=== PATIENT | female | born 1985 | race Two or more races ===

== ENCOUNTER 2024-02-22 08:21 | Inpatient (IN) | payer OTHER ==
[~2024-02-22] VITALS: Ht 157.5 cm; Wt 87.0 kg
[2024-02-22] MEDS ORDERED: TRAZ-252 PO (08:36)
[2024-02-22] MEDS ORDERED: FLUO-418 PO (08:36)
[2024-02-22] MEDS ORDERED: AMLO-257 PO (08:36)
[2024-02-22] MEDS ORDERED: LISI-893 PO (08:36)
[2024-02-22] MEDS ORDERED: DAPA10TA PO (08:36)
[2024-02-22] MEDS ORDERED: METF-1211 PO (08:36)
[2024-02-22 08:56] LABS: GLUCOMETER DEV NAME(LOC) ER.7; GLUCOSE,POINT OF CARE 261 MG/DL (70-110)
[2024-02-22] MEDS: DIPHENOXYLATE/ATROP 2.5-0.025 MG TABLET PO ONE (09:20)
[2024-02-22] MEDS: ONDANSETRON HCL 4 MG/2 ML VIAL IVP ONE (09:21)
[2024-02-22] MEDS: KETOROLAC TROMETHAMINE 30 MG/ML VIAL IVP ONE (09:21)
[2024-02-22] MEDS: ACETAMINOPHEN 500 MG TABLET PO ONE (09:21)
[2024-02-22] MEDS: SODIUM CHLORIDE 0.9% 2,000 ML IV ONE (09:22)
[2024-02-22 09:53] LABS: APPEARANCE,URINE HAZY (CLEAR); BILIRUBIN,URINE NEGATIVE (NEGATIVE); COLOR,URINE YELLOW (YELLOW); GLUCOSE, URINE (UA) TRACE mg/dL (NEGATIVE); KETONES,URINE NEGATIVE (NEGATIVE); LEUKOCYTE ESTERASE ,URINE NEGATIVE (NEGATIVE); NITRATE,URINE NEGATIVE (NEGATIVE); OCCULT BLOOD,URINE TRACE (NEGATIVE); PROTEIN,URINE 30-70 mg/dL (NEGATIVE); SPECIFIC GRAVITIY, URINE 1.024 (1.003-1.030); UROBILINOGEN,URINE <=1.0 mg/dL (<=1.0)
[2024-02-22 09:53] LABS: BASOPHILS % (AUTO) 0.1 % (0.0-2.0); EOSINOPHILS % (AUTO) 0 % (1.0-6.0); HEMOGLOBIN 13.6 g/dL (12.0-16.0); LYMPHOCYTES # (AUTO) 0.3 K/uL (1.0-4.8); LYMPHOCYTES % (AUTO) 6.6 % (22.0-44.0); MEAN CORPUSCULAR HEMOGLOBIN 28.5 pg (26.0-34.0); MEAN CORPUSCULAR HGB CONC 33.3 G/dL (31.0-37.0); MEAN CORPUSCULAR VOLUME 86 fL (80-100); MONOCYTES # (AUTO) 0.1 K/uL (0.1-1.0); MONOCYTES % (AUTO) 3.8 % (2.0-9.0); NEUTROPHILS # (AUTO) 3.5 K/uL (1.8-7.7); PLATELET COUNT (AUTO) 424 K/uL (150-450); RED BLOOD CELL COUNT(AUTO) 4.78 MIL/uL (4.00-5.20); RED CELL DISTRIBUTION WIDTH 16.8 % (11.5-14.5); WHITE BLOOD COUNT (AUTO) 3.9 K/uL (4.5-11.0)
[2024-02-22 09:59] LABS: RBC,URINE 0-2 /HPF (0-2); WBC,URINE None Seen /HPF (0-5)
[2024-02-22 09:59] LABS: NEUTROPHILS % (AUTO) 89.5 % (40.0-70.0)
[2024-02-22 10:00] LABS: BACTERIA,URINE Many /HPF (None Seen); SQUAMOUS EPITHELIAL CELL,UR Many /LPF (None Seen)
[2024-02-22 10:08] LABS: ANION GAP 19 mmol/L (8-16); CALCIUM, TOTAL 9.1 mg/dL (8.8-10.5); CARBON DIOXIDE 16 mmol/L (22-29); CHLORIDE 93 mmol/L (98-107); CREATININE 1.78 mg/dL (0.60-1.30); GLOMERULAR FILTR. RATE CALC 32 mL/min (>60); GLUCOSE,RANDOM 263 mg/dL (70-110); POTASSIUM 3.8 mmol/L (3.5-5.1); SODIUM SERUM 128 mmol/L (136-145); UREA NITROGEN, BLOOD 35 mg/dL (7-18)
[2024-02-22 10:15] LABS: ALANINE AMINOTRANSFERASE 33 U/L (12-78); ALBUMIN 3.6 g/dL (3.4-5.0); ALKALINE PHOSPHATASE 81 U/L (46-116); ASPARTATE AMINOTRANSFERASE 25 U/L (15-37); BILIRUBIN,TOTAL 0.7 mg/dL (0.1-1.0); LIPASE 24 U/L (16-77); TOTAL PROTEIN, SERUM 8.3 g/dL (6.4-8.2)
[2024-02-22 10:45] LABS: HCG,QUANTITATIVE < 1 mIU/mL (0-6)
[2024-02-22] MEDS ORDERED: MAGNESIUM HYDROXIDE SUSPENSION 30 ML UDCUP PO PRN (13:45)
[2024-02-22] MEDS ORDERED: BISACODYL 10 MG RECTAL RECTAL SUPPOSITORY PR PRN (13:45)
[2024-02-22] MEDS ORDERED: DEXTROSE 50%-WATER 25 GM/50 ML SYRINGE IVP PRN (14:00)
[2024-02-22] MEDS: MetroNIDAZOLE 500 MG/NACL 100 ML IV SCH (15:07)
[2024-02-22] MEDS: SODIUM CHLORIDE 0.9% 1,000 ML IV SCH (15:07)
[2024-02-22] MEDS: MORPHINE SULFATE 2 MG/ML SYRINGE IVP PRN (15:16)
[2024-02-22] MEDS: HEPARIN SODIUM,PORCINE 5,000 UNITS/ML VIAL SQ SCH (15:48)
[2024-02-22] MEDS: ACETAMINOPHEN 325 MG TABLET PO PRN (16:19)
[2024-02-22 16:37] VITALS: BP 127/69; PULSE 108; RESP 18; TEMP 100.7; O2SAT 99
[2024-02-22] MEDS: HYDROCODONE/ACETAMINOPHEN 5-325 MG TABLET PO PRN (17:40)
[2024-02-22] MEDS: DOCUSATE SODIUM 100 MG CAPSULE PO SCH (19:46)
[2024-02-22] MEDS: INSULIN LISPRO 100 UNITS/ML SQ PRN (19:53)
[2024-02-22 20:20] VITALS: BP 123/57; PULSE 95; RESP 18; TEMP 98.5; O2SAT 99
[2024-02-22 21:15] LABS: GLUCOMETER DEV NAME(LOC) 6N.2B; GLUCOSE,POINT OF CARE 212 MG/DL (70-110)
[2024-02-22 21:15] LABS: GLUCOMETER DEV NAME(LOC) 6N.2B; GLUCOSE,POINT OF CARE 212 MG/DL (70-110)
[2024-02-23 04:54] VITALS: BP 133/79; PULSE 113; RESP 18; TEMP 99.9; O2SAT 99
[2024-02-23] MEDS: ONDANSETRON HCL 4 MG/2 ML VIAL IVP PRN (04:59)
[2024-02-23 06:31] LABS: GLUCOMETER DEV NAME(LOC) 6N.2B; GLUCOSE,POINT OF CARE 249 MG/DL (70-110)
[2024-02-23 07:37] LABS: BASOPHILS % (AUTO) 0.2 % (0.0-2.0); EOSINOPHILS % (AUTO) 0 % (1.0-6.0); HEMATOCRIT 37.2 % (36-46); HEMOGLOBIN 12.3 g/dL (12.0-16.0); LYMPHOCYTES # (AUTO) 0.2 K/uL (1.0-4.8); LYMPHOCYTES % (AUTO) 7.2 % (22.0-44.0); MEAN CORPUSCULAR HEMOGLOBIN 28.3 pg (26.0-34.0); MEAN CORPUSCULAR HGB CONC 33.2 G/dL (31.0-37.0); MEAN CORPUSCULAR VOLUME 85 fL (80-100); MONOCYTES # (AUTO) 0.2 K/uL (0.1-1.0); MONOCYTES % (AUTO) 4.5 % (2.0-9.0); PLATELET COUNT (AUTO) 324 K/uL (150-450); RED BLOOD CELL COUNT(AUTO) 4.36 MIL/uL (4.00-5.20); RED CELL DISTRIBUTION WIDTH 16.5 % (11.5-14.5); WHITE BLOOD COUNT (AUTO) 3.4 K/uL (4.5-11.0)
[2024-02-23 07:38] LABS: NEUTROPHILS % (AUTO) 88.1 % (40.0-70.0)
[2024-02-23 07:50] LABS: CALCIUM, TOTAL 8.6 mg/dL (8.8-10.5); CREATININE 1.4 mg/dL (0.60-1.30); POTASSIUM 3.2 mmol/L (3.5-5.1)
[2024-02-23 08:00] VITALS: BP 154/73; PULSE 100; RESP 18; TEMP 97.7; O2SAT 97
[2024-02-23] MEDS: LISINOPRIL 10 MG TABLET PO SCH (09:22)
[2024-02-23] MEDS: PANTOPRAZOLE SODIUM 40 MG DR TABLET PO SCH (09:22)
[2024-02-23] MEDS: AmLODIPine BESYLATE 5 MG TABLET PO SCH (09:22)
[2024-02-23 12:03] VITALS: BP 93/52; PULSE 102; RESP 18; TEMP 97; O2SAT 99
[2024-02-23] MEDS ORDERED: SODIUM CHLORIDE 0.9% 250 ML IV ONE (12:20)
[2024-02-23] MEDS: SODIUM CHLORIDE 0.9% 250 ML IV ONE (12:26)
[2024-02-23] MEDS ORDERED: SODIUM CHLORIDE 0.9% 500 ML IV ONE (14:24)
[2024-02-23] MEDS: SODIUM CHLORIDE 0.9% 500 ML IV ONE (14:28)
[2024-02-23 16:19] VITALS: BP 97/46; PULSE 88; RESP 18; TEMP 96; O2SAT 97
[2024-02-23 17:21] LABS: GLUCOMETER DEV NAME(LOC) 4E.2; GLUCOSE,POINT OF CARE 265 MG/DL (70-110)
[2024-02-23 20:00] VITALS: BP 93/53; PULSE 80; RESP 18; TEMP 98.1; O2SAT 97
[2024-02-23 21:42] VITALS: BP 90/48; PULSE 79; RESP 19; TEMP 97.9; O2SAT 98
[2024-02-23 21:56] LABS: GLUCOMETER DEV NAME(LOC) 5N.2C; GLUCOSE,POINT OF CARE 200 MG/DL (70-110)
[2024-02-23 23:09] LABS: C.DIFF GDH ANTIGEN, Stool Negative (Negative); C.DIFF TOXINS A&B, Stool Negative (Negative)
[2024-02-23] MEDS: POTASSIUM CHL 10 MEQ/WATER 50 ML IV SCH (23:11)
[2024-02-24 00:54] VITALS: BP 89/48; PULSE 77; RESP 19; TEMP 98.1; O2SAT 97
[2024-02-24 01:40] VITALS: BP 88/51; PULSE 78; RESP 20; TEMP 98; O2SAT 96
[2024-02-24 04:00] VITALS: BP 90/55; PULSE 71; RESP 17; TEMP 98.2; O2SAT 99
[2024-02-24 06:43] LABS: BASOPHILS % (AUTO) 0.4 % (0.0-2.0); EOSINOPHILS % (AUTO) 0.1 % (1.0-6.0); HEMATOCRIT 34.7 % (36-46); HEMOGLOBIN 11.7 g/dL (12.0-16.0); LYMPHOCYTES # (AUTO) 0.5 K/uL (1.0-4.8); LYMPHOCYTES % (AUTO) 16.6 % (22.0-44.0); MEAN CORPUSCULAR HEMOGLOBIN 28.8 pg (26.0-34.0); MEAN CORPUSCULAR HGB CONC 33.6 G/dL (31.0-37.0); MEAN CORPUSCULAR VOLUME 86 fL (80-100); MONOCYTES # (AUTO) 0.5 K/uL (0.1-1.0); MONOCYTES % (AUTO) 16.5 % (2.0-9.0); NEUTROPHILS # (AUTO) 2.1 K/uL (1.8-7.7); NEUTROPHILS % (AUTO) 66.4 % (40.0-70.0); PLATELET COUNT (AUTO) 338 K/uL (150-450); RED BLOOD CELL COUNT(AUTO) 4.05 MIL/uL (4.00-5.20); RED CELL DISTRIBUTION WIDTH 16.8 % (11.5-14.5); WHITE BLOOD COUNT (AUTO) 3.2 K/uL (4.5-11.0)
[2024-02-24 06:51] LABS: CALCIUM, TOTAL 8.6 mg/dL (8.8-10.5); CREATININE 4.01 mg/dL (0.60-1.30); POTASSIUM 3.7 mmol/L (3.5-5.1)
[2024-02-24 08:00] LABS: GLUCOMETER DEV NAME(LOC) 5S.1C; GLUCOSE,POINT OF CARE 209 MG/DL (70-110)
[2024-02-24 08:00] LABS: GLUCOMETER DEV NAME(LOC) 5S.1C; GLUCOSE,POINT OF CARE 203 MG/DL (70-110)
[2024-02-24 09:04] VITALS: BP 101/59; PULSE 70; RESP 16; TEMP 97.7; O2SAT 99
[2024-02-24 14:04] VITALS: BP 101/60; PULSE 69; RESP 16; TEMP 98; O2SAT 98
[2024-02-24] MEDS: SODIUM BICARBONATE 75 MEQ in SODIUM CHLORIDE 0.45% 1,000 ML IV SCH (14:32)
[2024-02-24] MEDS: POTASSIUM CHL 10 MEQ/WATER 50 ML IV SCH (14:32)
[2024-02-24 17:45] LABS: GLUCOMETER DEV NAME(LOC) 5N.2C; GLUCOSE,POINT OF CARE 228 MG/DL (70-110)
[2024-02-24 21:38] VITALS: BP 107/55; PULSE 77; RESP 17; TEMP 97.5; O2SAT 99
[2024-02-25 00:44] VITALS: BP 94/46; PULSE 98; RESP 19; TEMP 97.7; O2SAT 97
[2024-02-25 04:39] VITALS: BP 123/59; PULSE 81; RESP 18; TEMP 97.5; O2SAT 99
[2024-02-25 07:05] LABS: BASOPHILS % (AUTO) 0.1 % (0.0-2.0); EOSINOPHILS % (AUTO) 0.1 % (1.0-6.0); HEMATOCRIT 34.5 % (36-46); HEMOGLOBIN 11.4 g/dL (12.0-16.0); LYMPHOCYTES # (AUTO) 0.5 K/uL (1.0-4.8); MEAN CORPUSCULAR HEMOGLOBIN 28.3 pg (26.0-34.0); MEAN CORPUSCULAR HGB CONC 33.1 G/dL (31.0-37.0); MEAN CORPUSCULAR VOLUME 86 fL (80-100); MONOCYTES # (AUTO) 0.8 K/uL (0.1-1.0); NEUTROPHILS # (AUTO) 3.3 K/uL (1.8-7.7); NEUTROPHILS % (AUTO) 70.8 % (40.0-70.0); PLATELET COUNT (AUTO) 391 K/uL (150-450); RED BLOOD CELL COUNT(AUTO) 4.03 MIL/uL (4.00-5.20); RED CELL DISTRIBUTION WIDTH 16.6 % (11.5-14.5); WHITE BLOOD COUNT (AUTO) 4.7 K/uL (4.5-11.0)
[2024-02-25 07:20] LABS: CALCIUM, TOTAL 8.9 mg/dL (8.8-10.5); CREATININE 5.9 mg/dL (0.60-1.30); MAGNESIUM 3.1 mg/dL (1.80-2.40); PHOSPHORUS 5.9 mg/dL (2.5-4.9); POTASSIUM 3.9 mmol/L (3.5-5.1)
[2024-02-25 08:00] VITALS: BP 112/62; PULSE 80; RESP 16; TEMP 98; O2SAT 98
[2024-02-25 10:26] LABS: GLUCOMETER DEV NAME(LOC) 5S.1C; GLUCOSE,POINT OF CARE 223 MG/DL (70-110)
[2024-02-25 13:00] VITALS: BP 124/65; PULSE 68; RESP 18; TEMP 97.9; O2SAT 99
[2024-02-25 14:48] LABS: ABG A-A DIFF O2 15.2 mmHg (10-20.0); ABG CARBOXYHEMOGLOBIN 0.3 % (0.5-1.5); ABG HCO3 15.9 mmol/L (21.0-28.0); ABG METHEMOGLOBIN 0.8 % (0.0-1.5); ABG OXYGEN CONTENT 18.3 mL/dL (15.0-23.0); ABG OXYGEN SATURATION 98.5 % (94.0-98.0); ABG OXYHEMOGLOBIN 97.4 % (94.0-98.0); ABG PCO2 23 mmHg (32.0-45.0); ABG PH 7.356 (7.350-7.450); ABG TOTAL HEMOGLOBIN 13.3 G/dL (12.0-16.0); ALLEN TEST, BLOOD GAS Positive; O2 DEVICE,BLOOD GAS ROOM AIR (ROOM AIR); PO2, ARTERIAL BG 107.2 mmHg (83.0-108.0); SITE, BLOOD GAS RT RADIAL; SOURCE, BLOOD GAS ARTERIAL; TEMPERATURE, FAHRENHEIT, BG 98.6 FAHREN (96.0-98.6)
[2024-02-25] MEDS: AZITHROMYCIN 500 MG/NS 250 ML IV SCH (16:26)
[2024-02-25 17:04] VITALS: BP 111/60; PULSE 77; RESP 16; TEMP 98; O2SAT 99
[2024-02-25 20:00] VITALS: BP 115/58; PULSE 83; RESP 18; TEMP 98.1; O2SAT 100
[2024-02-25] MEDS: ZOLPIDEM TARTRATE 5 MG TABLET PO PRN (22:34)
[2024-02-26 00:21] LABS: GLUCOMETER DEV NAME(LOC) 5S.1C; GLUCOSE,POINT OF CARE 330 MG/DL (70-110)
[2024-02-26 04:00] VITALS: BP 114/62; PULSE 85; RESP 18; TEMP 97.7; O2SAT 98
[2024-02-26] MEDS: METOCLOPRAMIDE HCL 5 MG/ML 2 ML VIAL IVP ONE (04:55)
[2024-02-26 06:06] LABS: GLUCOMETER DEV NAME(LOC) 5N.2C; GLUCOSE,POINT OF CARE 203 MG/DL (70-110)
[2024-02-26 06:06] LABS: GLUCOMETER DEV NAME(LOC) 5N.1D; GLUCOSE,POINT OF CARE 271 MG/DL (70-110)
[2024-02-26 07:04] LABS: CALCIUM, TOTAL 8.6 mg/dL (8.8-10.5); CREATININE 7.13 mg/dL (0.60-1.30); POTASSIUM 3.1 mmol/L (3.5-5.1)
[2024-02-26 08:07] VITALS: BP 102/48; PULSE 80; RESP 16; TEMP 98.1; O2SAT 97
[2024-02-26 11:18] VITALS: BP 101/48; PULSE 84; RESP 16; TEMP 98.2; O2SAT 97
[2024-02-26 11:56] LABS: GLUCOMETER DEV NAME(LOC) 5S.2D; GLUCOSE,POINT OF CARE 205 MG/DL (70-110)
[2024-02-26 11:56] LABS: GLUCOMETER DEV NAME(LOC) 5S.2D; GLUCOSE,POINT OF CARE 223 MG/DL (70-110)
[2024-02-26] MEDS: POTASSIUM CHL 10 MEQ/WATER 50 ML IV SCH (12:30)
[2024-02-26] MEDS: SODIUM BICARBONATE 150 MEQ in DEXTROSE 5%-WATER 1,000 ML IV SCH (13:15)
[2024-02-26 15:30] VITALS: BP 108/60; PULSE 79; RESP 16; TEMP 98; O2SAT 98
[2024-02-26 16:32] LABS: CALCIUM, TOTAL 8.7 mg/dL (8.8-10.5); CREATININE 7.29 mg/dL (0.60-1.30); POTASSIUM 3.3 mmol/L (3.5-5.1)
[2024-02-26] MEDS: SODIUM CHLORIDE 3% 500 ML IV SCH (16:41)
[2024-02-26 17:28] LABS: BASOPHILS % (AUTO) 0.1 % (0.0-2.0); EOSINOPHILS % (AUTO) 0.2 % (1.0-6.0); HEMATOCRIT 35.1 % (36-46); HEMOGLOBIN 11.7 g/dL (12.0-16.0); LYMPHOCYTES # (AUTO) 0.7 K/uL (1.0-4.8); LYMPHOCYTES % (AUTO) 14.4 % (22.0-44.0); MEAN CORPUSCULAR HEMOGLOBIN 27.5 pg (26.0-34.0); MEAN CORPUSCULAR HGB CONC 33.4 G/dL (31.0-37.0); MEAN CORPUSCULAR VOLUME 82 fL (80-100); MONOCYTES # (AUTO) 0.8 K/uL (0.1-1.0); MONOCYTES % (AUTO) 15.2 % (2.0-9.0); NEUTROPHILS # (AUTO) 3.6 K/uL (1.8-7.7); NEUTROPHILS % (AUTO) 70.1 % (40.0-70.0); PLATELET COUNT (AUTO) 474 K/uL (150-450); RED BLOOD CELL COUNT(AUTO) 4.26 MIL/uL (4.00-5.20); WHITE BLOOD COUNT (AUTO) 5.1 K/uL (4.5-11.0)
[2024-02-26 20:06] LABS: GLUCOMETER DEV NAME(LOC) 5N.1D; GLUCOSE,POINT OF CARE 317 MG/DL (70-110)
[2024-02-26 20:10] LABS: GLUCOMETER DEV NAME(LOC) 5S.1C; GLUCOSE,POINT OF CARE 341 MG/DL (70-110)
[2024-02-26] MEDS: AMPICILLIN SODIUM 2 GM/NS 100 ML IV SCH (20:40)
[2024-02-26 20:52] LABS: CALCIUM, TOTAL 8.4 mg/dL (8.8-10.5); CREATININE 7.49 mg/dL (0.60-1.30); POTASSIUM 3.4 mmol/L (3.5-5.1)
[2024-02-26 21:04] VITALS: BP 119/60; PULSE 80; RESP 18; TEMP 97.8; O2SAT 98
[2024-02-26 22:00] VITALS: PULSE 84
[2024-02-26] MEDS: ONDANSETRON HCL 4 MG/2 ML VIAL IVP PRN (22:39)
[2024-02-27] VITALS: BP 111/62; PULSE 71; RESP 12; TEMP 98.3; O2SAT 96
[2024-02-27 00:41] LABS: GLUCOMETER DEV NAME(LOC) ICU.S6; GLUCOSE,POINT OF CARE 233 MG/DL (70-110)
[2024-02-27 04:00] VITALS: BP 103/61; PULSE 73; RESP 12; TEMP 98.2; O2SAT 97
[2024-02-27 06:24] LABS: BASOPHILS % (AUTO) 0.3 % (0.0-2.0); EOSINOPHILS % (AUTO) 0.3 % (1.0-6.0); HEMATOCRIT 36.1 % (36-46); HEMOGLOBIN 12.2 g/dL (12.0-16.0); LYMPHOCYTES # (AUTO) 0.9 K/uL (1.0-4.8); MEAN CORPUSCULAR HEMOGLOBIN 27.8 pg (26.0-34.0); MEAN CORPUSCULAR HGB CONC 33.8 G/dL (31.0-37.0); MEAN CORPUSCULAR VOLUME 82 fL (80-100); MONOCYTES # (AUTO) 0.7 K/uL (0.1-1.0); MONOCYTES % (AUTO) 13.6 % (2.0-9.0); NEUTROPHILS # (AUTO) 3.6 K/uL (1.8-7.7); NEUTROPHILS % (AUTO) 68.8 % (40.0-70.0); PLATELET COUNT (AUTO) 403 K/uL (150-450); RED BLOOD CELL COUNT(AUTO) 4.38 MIL/uL (4.00-5.20); WHITE BLOOD COUNT (AUTO) 5.3 K/uL (4.5-11.0)
[2024-02-27 06:37] LABS: ALBUMIN 2.6 g/dL (3.4-5.0); BILIRUBIN,TOTAL 0.3 mg/dL (0.1-1.0); CALCIUM, TOTAL 8.4 mg/dL (8.8-10.5); CREATININE 6.46 mg/dL (0.60-1.30); MAGNESIUM 2.9 mg/dL (1.80-2.40); PHOSPHORUS 6.8 mg/dL (2.5-4.9)
[2024-02-27 06:46] LABS: POTASSIUM 2.9 mmol/L (3.5-5.1)
[2024-02-27 08:00] VITALS: BP 119/74; PULSE 65; PULSE 69; RESP 14; TEMP 98.5; O2SAT 97
[2024-02-27] MEDS: POTASSIUM CHLORIDE 20 MEQ ER TABLET PO ONE ×2 (08:19→21:18)
[2024-02-27] MEDS ORDERED: SODIUM CHLORIDE 0.9% 250 ML IV ONE (09:11)
[2024-02-27 10:23] LABS: CALCIUM, TOTAL 8.6 mg/dL (8.8-10.5); POTASSIUM 3.2 mmol/L (3.5-5.1)
[2024-02-27 11:09] LABS: MAGNESIUM 2.7 mg/dL (1.80-2.40); PHOSPHORUS 5.6 mg/dL (2.5-4.9)
[2024-02-27] MEDS: WATER IV SCH (11:16)
[2024-02-27] MEDS: SODIUM BICARBONATE IV SCH (11:16)
[2024-02-27] MEDS: DEXTROSE 5% IV SCH (11:16)
[2024-02-27] MEDS: POTASSIUM CHLORIDE IV SCH (11:16)
[2024-02-27 12:00] VITALS: BP 99/35; PULSE 82; RESP 15; TEMP 98.1; O2SAT 98
[2024-02-27 15:40] LABS: POTASSIUM 3.7 mmol/L (3.5-5.1)
[2024-02-27 16:00] VITALS: BP 125/69; PULSE 82; RESP 16; TEMP 98.3; O2SAT 98
[2024-02-27 17:05] LABS: GLUCOMETER DEV NAME(LOC) ICUN.5; GLUCOSE,POINT OF CARE 208 MG/DL (70-110)
[2024-02-27 17:05] LABS: GLUCOMETER DEV NAME(LOC) ICUN.5; GLUCOSE,POINT OF CARE 308 MG/DL (70-110)
[2024-02-27 19:21] LABS: GLUCOMETER DEV NAME(LOC) ICU.S6; GLUCOSE,POINT OF CARE 218 MG/DL (70-110)
[2024-02-27 20:00] VITALS: BP 95/52; PULSE 79; RESP 14; TEMP 98.2; O2SAT 99
[2024-02-27 20:00] LABS: CALCIUM, TOTAL 7.9 mg/dL (8.8-10.5); CREATININE 4.99 mg/dL (0.60-1.30); POTASSIUM 3.2 mmol/L (3.5-5.1)
[2024-02-27] MEDS: RINGERS SOLUTION,LACTATED 1,000 ML IV SCH (21:18)
[2024-02-28] VITALS (7 sets, daily range): BP systolic 94–145; BP diastolic 52–93; PULSE 71–92; RESP 12–19; TEMP 97.8–98.5; O2SAT 96–100
[2024-02-28 06:00] LABS: GLUCOMETER DEV NAME(LOC) ICUN.5; GLUCOSE,POINT OF CARE 219 MG/DL (70-110)
[2024-02-28 06:16] LABS: BASOPHILS % (AUTO) 0.3 % (0.0-2.0); EOSINOPHILS % (AUTO) 0.6 % (1.0-6.0); HEMATOCRIT 32.5 % (36-46); HEMOGLOBIN 11.1 g/dL (12.0-16.0); LYMPHOCYTES # (AUTO) 0.8 K/uL (1.0-4.8); LYMPHOCYTES % (AUTO) 26.6 % (22.0-44.0); MEAN CORPUSCULAR HEMOGLOBIN 28.2 pg (26.0-34.0); MEAN CORPUSCULAR HGB CONC 34.2 G/dL (31.0-37.0); MEAN CORPUSCULAR VOLUME 82 fL (80-100); MONOCYTES # (AUTO) 0.5 K/uL (0.1-1.0); MONOCYTES % (AUTO) 16.8 % (2.0-9.0); NEUTROPHILS # (AUTO) 1.8 K/uL (1.8-7.7); NEUTROPHILS % (AUTO) 55.7 % (40.0-70.0); PLATELET COUNT (AUTO) 364 K/uL (150-450); RED BLOOD CELL COUNT(AUTO) 3.95 MIL/uL (4.00-5.20); RED CELL DISTRIBUTION WIDTH 16.9 % (11.5-14.5); WHITE BLOOD COUNT (AUTO) 3.1 K/uL (4.5-11.0)
[2024-02-28 06:33] LABS: CALCIUM, TOTAL 8.8 mg/dL (8.8-10.5); CREATININE 3.68 mg/dL (0.60-1.30); MAGNESIUM 2.7 mg/dL (1.80-2.40); PHOSPHORUS 4.5 mg/dL (2.5-4.9)
[2024-02-28 06:55] LABS: GLUCOMETER DEV NAME(LOC) ICU.S6; GLUCOSE,POINT OF CARE 237 MG/DL (70-110)
[2024-02-28 08:07] LABS: IMMUNOGLOBULIN A 266 mg/dL (87-352); IMMUNOGLOBULIN G 1049 mg/dL (586-1602); IMMUNOGLOBULIN M 73 mg/dL (26-217)
[2024-02-28] MEDS ORDERED: SODIUM CHLORIDE 0.9% 250 ML IV ONE (08:35)
[2024-02-28 12:20] LABS: GLUCOMETER DEV NAME(LOC) ICU.S6; GLUCOSE,POINT OF CARE 306 MG/DL (70-110)
[2024-02-28 15:07] LABS: ATYPICAL P-ANCA AB <1:20 titer (Neg:<1:20); CYTOPLASMIC (C-ANCA) AB, IGG <1:20 titer (Neg:<1:20)
[2024-02-28 21:06] LABS: ADENOVIRUS F 40/41, PCR STOOL Not Detected (Not Detected); ASTROVIRUS, PCR STOOL Not Detected (Not Detected); C.DIFFICILE TOXIN A/B PCR Not Detected (Not Detected); CAMPYLOBACTER PCR,STOOL Not Detected (Not Detected); CRYPTOSPORIDIUM PCR, STOOL Not Detected (Not Detected); CYCLOSPORA CAYETANENSIS, PCR Not Detected (Not Detected); ENTAMOEBA HISTOLYTICA,PCR ST Not Detected (Not Detected); ENTEROAGGREGATIVE E.COLI PCR Not Detected (Not Detected); ENTEROPATHOGENIC E.COLI PCR Not Detected (Not Detected); ENTEROTOXIGENIC E.COLI PCR Not Detected (Not Detected); GIARDIA LAMBLIA, PCR STOOL Not Detected (Not Detected); NOROVIRUS GI/GII, PCR-STOOL Not Detected (Not Detected); PLESIOMONAS SHIGELLOIDES,PCR Not Detected (Not Detected); ROTAVIRUS A, PCR-STOOL Not Detected (Not Detected); SALMONELLA PCR,STOOL Detected (Not Detected); SAPOVIRUS, PCR-STOOL Not Detected (Not Detected); SHIGA-TOXIN E.COLI PCR Not Detected (Not Detected); SHIGELLA/ENTEROINVAS ECOL, PCR Not Detected (Not Detected); VIBRIO CHOLERAE PCR,STOOL Not Detected (Not Detected); VIBRIO PCR,STOOL Not Detected (Not Detected); Y. ENTEROCOLITICA PCR,STOOL Not Detected (Not Detected)
[2024-02-28 21:31] LABS: GLUCOMETER DEV NAME(LOC) 5S.2D; GLUCOSE,POINT OF CARE 185 MG/DL (70-110)
[2024-02-28 21:52] LABS: APPEARANCE,URINE TURBID (CLEAR); BILIRUBIN,URINE NEGATIVE (NEGATIVE); COLOR,URINE YELLOW (YELLOW); GLUCOSE, URINE (UA) >=1000 mg/dL (NEGATIVE); KETONES,URINE NEGATIVE (NEGATIVE); LEUKOCYTE ESTERASE ,URINE NEGATIVE (NEGATIVE); NITRATE,URINE NEGATIVE (NEGATIVE); OCCULT BLOOD,URINE LARGE (NEGATIVE); PROTEIN,URINE 30-70 mg/dL (NEGATIVE); SPECIFIC GRAVITIY, URINE 1.015 (1.003-1.030); UROBILINOGEN,URINE <=1.0 mg/dL (<=1.0)
[2024-02-28 22:05] LABS: BACTERIA,URINE Moderate /HPF (None Seen); SQUAMOUS EPITHELIAL CELL,UR Few /LPF (None Seen); WBC,URINE 0-2 /HPF (0-5); YEAST,URINE Moderate /HPF (None Seen)
[2024-02-28 22:06] LABS: URIC ACID CRYSTALS,URINE Moderate /LPF (None Seen)
[2024-02-28 23:16] LABS: GLUCOMETER DEV NAME(LOC) 5S.1C; GLUCOSE,POINT OF CARE 332 MG/DL (70-110)
[2024-02-29] VITALS (7 sets, daily range): BP systolic 120–137; BP diastolic 65–82; PULSE 67–82; RESP 17–19; TEMP 97.8–98.9; O2SAT 95–98
[2024-02-29 06:37] LABS: BASOPHILS % (AUTO) 0.8 % (0.0-2.0); EOSINOPHILS % (AUTO) 1.8 % (1.0-6.0); HEMATOCRIT 33.5 % (36-46); HEMOGLOBIN 11.1 g/dL (12.0-16.0); LYMPHOCYTES % (AUTO) 38.6 % (22.0-44.0); MEAN CORPUSCULAR HEMOGLOBIN 27.5 pg (26.0-34.0); MEAN CORPUSCULAR HGB CONC 33.2 G/dL (31.0-37.0); MEAN CORPUSCULAR VOLUME 83 fL (80-100); MONOCYTES # (AUTO) 0.4 K/uL (0.1-1.0); MONOCYTES % (AUTO) 15.1 % (2.0-9.0); NEUTROPHILS # (AUTO) 1.1 K/uL (1.8-7.7); NEUTROPHILS % (AUTO) 43.7 % (40.0-70.0); PLATELET COUNT (AUTO) 412 K/uL (150-450); RED BLOOD CELL COUNT(AUTO) 4.04 MIL/uL (4.00-5.20); RED CELL DISTRIBUTION WIDTH 16.2 % (11.5-14.5); WHITE BLOOD COUNT (AUTO) 2.6 K/uL (4.5-11.0)
[2024-02-29 06:55] LABS: CREATININE 1.86 mg/dL (0.60-1.30); MAGNESIUM 2.3 mg/dL (1.80-2.40); PHOSPHORUS 4.5 mg/dL (2.5-4.9); POTASSIUM 4.1 mmol/L (3.5-5.1)
[2024-02-29 10:07] LABS: BRUCELLA ANTIBODY-IGM EIA Negative (Negative)
[2024-02-29] MEDS: GlipiZIDE 5 MG TABLET PO SCH (10:43)
[2024-02-29] MEDS: *CLINICAL-LEVOFLOXACIN IVPB DOSING CLINICAL ONE (12:22)
[2024-02-29] MEDS ORDERED: LEVOFLOXACIN 750 MG/D5% WATER 150 ML IV SCH (12:30)
[2024-02-29] MEDS: LEVOFLOXACIN 750 MG/D5% WATER 150 ML IV SCH (14:17)
[2024-02-29 20:26] LABS: GLUCOMETER DEV NAME(LOC) 5S.2D; GLUCOSE,POINT OF CARE 236 MG/DL (70-110)
[2024-02-29 20:51] LABS: GLUCOMETER DEV NAME(LOC) 6S.1D; GLUCOSE,POINT OF CARE 184 MG/DL (70-110)
[2024-03-01 00:12] LABS: TROPONIN I-HIGH SENSITIVITY Less Than 4 ng/L (<51)
[2024-03-01 03:40] LABS: TROPONIN I-HIGH SENSITIVITY 4 ng/L (<51)
[2024-03-01 04:00] VITALS: BP 123/73; PULSE 76; RESP 19; O2SAT 99
[2024-03-01 07:01] LABS: BASOPHILS % (AUTO) 1.2 % (0.0-2.0); EOSINOPHILS % (AUTO) 3.1 % (1.0-6.0); HEMATOCRIT 30.9 % (36-46); HEMOGLOBIN 10.5 g/dL (12.0-16.0); LYMPHOCYTES # (AUTO) 0.9 K/uL (1.0-4.8); LYMPHOCYTES % (AUTO) 34.9 % (22.0-44.0); MEAN CORPUSCULAR HEMOGLOBIN 28.1 pg (26.0-34.0); MEAN CORPUSCULAR HGB CONC 33.8 G/dL (31.0-37.0); MEAN CORPUSCULAR VOLUME 83 fL (80-100); MONOCYTES # (AUTO) 0.5 K/uL (0.1-1.0); MONOCYTES % (AUTO) 17.5 % (2.0-9.0); NEUTROPHILS # (AUTO) 1.1 K/uL (1.8-7.7); NEUTROPHILS % (AUTO) 43.3 % (40.0-70.0); PLATELET COUNT (AUTO) 317 K/uL (150-450); RED BLOOD CELL COUNT(AUTO) 3.72 MIL/uL (4.00-5.20); WHITE BLOOD COUNT (AUTO) 2.6 K/uL (4.5-11.0)
[2024-03-01 07:15] LABS: ALBUMIN 2.6 g/dL (3.4-5.0); BILIRUBIN,TOTAL 0.4 mg/dL (0.1-1.0); CALCIUM, TOTAL 9.2 mg/dL (8.8-10.5); CREATININE 1.44 mg/dL (0.60-1.30); POTASSIUM 4.1 mmol/L (3.5-5.1); TOTAL PROTEIN, SERUM 6.7 g/dL (6.4-8.2)
[2024-03-01 07:58] VITALS: BP 131/77; PULSE 67; RESP 18; TEMP 98.5; O2SAT 99
[2024-03-01 12:10] LABS: GLUCOMETER DEV NAME(LOC) 6S.1D; GLUCOSE,POINT OF CARE 190 MG/DL (70-110)
[2024-03-01 12:30] LABS: GLUCOMETER DEV NAME(LOC) 6S.2; GLUCOSE,POINT OF CARE 201 MG/DL (70-110)
[2024-03-01] MEDS: LEVOFLOXACIN 750 MG/D5% WATER 150 ML IV SCH (12:36)
[2024-03-01] MEDS: LOPERAMIDE HCL 2 MG CAPSULE PO ONE (14:52)
[2024-03-01 15:35] VITALS: BP 138/74; PULSE 64; RESP 18; TEMP 98.2; O2SAT 100
[2024-03-01] MEDS: LOPERAMIDE HCL 2 MG CAPSULE PO PRN (20:19)
[2024-03-01 20:32] VITALS: BP 142/85; PULSE 80; RESP 18; TEMP 98.9; O2SAT 98
[2024-03-01 23:41] LABS: GLUCOMETER DEV NAME(LOC) 6S.2; GLUCOSE,POINT OF CARE 231 MG/DL (70-110)
[2024-03-02 04:40] VITALS: BP 143/73; PULSE 71; RESP 18; TEMP 98.2; O2SAT 99
[2024-03-02] MEDS: GlipiZIDE 5 MG TABLET PO SCH (06:06)
[2024-03-02 07:46] LABS: GLUCOMETER DEV NAME(LOC) 6S.2; GLUCOSE,POINT OF CARE 209 MG/DL (70-110)
[2024-03-02 07:56] LABS: CALCIUM, TOTAL 8.7 mg/dL (8.8-10.5); CREATININE 1.29 mg/dL (0.60-1.30); MAGNESIUM 1.3 mg/dL (1.80-2.40); PHOSPHORUS 3.5 mg/dL (2.5-4.9)
[2024-03-02 08:03] LABS: BASOPHILS % (AUTO) 1.1 % (0.0-2.0); EOSINOPHILS % (AUTO) 3.4 % (1.0-6.0); HEMATOCRIT 29.8 % (36-46); LYMPHOCYTES % (AUTO) 39.3 % (22.0-44.0); MEAN CORPUSCULAR HEMOGLOBIN 28.1 pg (26.0-34.0); MEAN CORPUSCULAR HGB CONC 33.4 G/dL (31.0-37.0); MEAN CORPUSCULAR VOLUME 84 fL (80-100); MONOCYTES # (AUTO) 0.4 K/uL (0.1-1.0); MONOCYTES % (AUTO) 14.4 % (2.0-9.0); NEUTROPHILS # (AUTO) 1.1 K/uL (1.8-7.7); NEUTROPHILS % (AUTO) 41.8 % (40.0-70.0); PLATELET COUNT (AUTO) 309 K/uL (150-450); RED BLOOD CELL COUNT(AUTO) 3.55 MIL/uL (4.00-5.20); RED CELL DISTRIBUTION WIDTH 16.1 % (11.5-14.5); WHITE BLOOD COUNT (AUTO) 2.6 K/uL (4.5-11.0)
[2024-03-02 08:27] VITALS: BP 115/72; PULSE 69; RESP 18; TEMP 98.2; O2SAT 100
[2024-03-02] MEDS: MAGNESIUM SULFATE 3 GM in DEXTROSE 5%-WATER 100 ML IV ONE (11:18)
[2024-03-02] MEDS ORDERED: AMPICILLIN SODIUM 2 GM/NS 100 ML IV SCH (16:00)
[2024-03-02] MEDS: AMPICILLIN SODIUM 2 GM/NS 100 ML IV SCH (16:13)
[2024-03-02 16:51] LABS: GLUCOMETER DEV NAME(LOC) 6S.1D; GLUCOSE,POINT OF CARE 221 MG/DL (70-110)
[2024-03-02 19:59] VITALS: BP 141/78; PULSE 85; RESP 18; TEMP 98; O2SAT 100
[2024-03-03 04:38] VITALS: BP 117/76; PULSE 68; RESP 20; TEMP 98.6; O2SAT 100
[2024-03-03 06:26] LABS: GLUCOMETER DEV NAME(LOC) 6S.2; GLUCOSE,POINT OF CARE 146 MG/DL (70-110)
[2024-03-03 07:18] LABS: BASOPHILS % (AUTO) 1.1 % (0.0-2.0); EOSINOPHILS % (AUTO) 2.6 % (1.0-6.0); HEMATOCRIT 28.6 % (36-46); HEMOGLOBIN 9.7 g/dL (12.0-16.0); LYMPHOCYTES % (AUTO) 41.8 % (22.0-44.0); MEAN CORPUSCULAR HEMOGLOBIN 28.3 pg (26.0-34.0); MEAN CORPUSCULAR HGB CONC 33.8 G/dL (31.0-37.0); MEAN CORPUSCULAR VOLUME 84 fL (80-100); MONOCYTES # (AUTO) 0.3 K/uL (0.1-1.0); MONOCYTES % (AUTO) 10.5 % (2.0-9.0); PLATELET COUNT (AUTO) 241 K/uL (150-450); RED BLOOD CELL COUNT(AUTO) 3.41 MIL/uL (4.00-5.20); RED CELL DISTRIBUTION WIDTH 15.8 % (11.5-14.5); WHITE BLOOD COUNT (AUTO) 2.4 K/uL (4.5-11.0)
[2024-03-03] MEDS ORDERED: EVOL140P3 SQ (07:26)
[2024-03-03] MEDS ORDERED: ICOS1CAP PO (07:26)
[2024-03-03] MEDS ORDERED: QUET100T PO (07:26)
[2024-03-03] MEDS ORDERED: RIVA2.5T3 PO (07:26)
[2024-03-03] MEDS ORDERED: EZET10TA57 PO (07:26)
[2024-03-03] MEDS ORDERED: BACL10TA PO (07:26)
[2024-03-03] MEDS ORDERED: IBUP1CAP13 PO (07:26)
[2024-03-03] MEDS ORDERED: NIFE-129 PO (07:26)
[2024-03-03] MEDS ORDERED: ASPI-1450 PO (07:26)
[2024-03-03] MEDS ORDERED: GABA-1181 PO (07:26)
[2024-03-03] MEDS ORDERED: FAMO20 PO (07:26)
[2024-03-03] MEDS ORDERED: LOSA-382 PO (07:26)
[2024-03-03 07:36] LABS: ANION GAP 5 mmol/L (8-16); CALCIUM, TOTAL 8.7 mg/dL (8.8-10.5); CARBON DIOXIDE 27 mmol/L (22-29); CHLORIDE 105 mmol/L (98-107); CREATININE 0.98 mg/dL (0.60-1.30); GLOMERULAR FILTR. RATE CALC > 60 mL/min (>60); GLUCOSE,RANDOM 154 mg/dL (70-110); PHOSPHORUS 3.4 mg/dL (2.5-4.9); POTASSIUM 4.3 mmol/L (3.5-5.1); SODIUM SERUM 137 mmol/L (136-145); UREA NITROGEN, BLOOD 5 mg/dL (7-18)
[2024-03-03] MEDS: LEVOFLOXACIN 750 MG TABLET PO SCH (09:22)
[2024-03-03] MEDS ORDERED: AMLO2.5T96 PO (10:46)
[2024-03-03] MEDS ORDERED: LOPE-232 PO (10:46)
[2024-03-03] MEDS ORDERED: GLIP5TAB15 PO (10:46)
[2024-03-03] MEDS ORDERED: ACID1TAB8 PO (10:46)
[2024-03-03] MEDS ORDERED: LEVO750T68 PO (10:46)
[2024-03-03] MEDS: MAGNESIUM SULFATE 2 GM/WATER 50 ML IV ONE (12:24)
== END 2024-03-03 16:13 | disposition home or self-care (01) | DRG 248 ==
LOC: EMS 08:21 → EDH 13:53 → 4E 16:30 → 5S 02-23 17:26 → ICU 02-26 21:32 → 5S 02-28 12:55 → 6S 02-29 16:05
PROVIDERS: ADMIT Internal Medicine; ATTEND Internal Medicine
DX: A02.0 Salmonella enteritis (principal); N17.0 Acute kidney failure with tubular necrosis; A41.9 Sepsis, unspecified organism; E87.20 Acidosis, unspecified; E44.1 Mild protein-calorie malnutrition; D63.8 Anemia in other chronic diseases classified elsewhere; D70.9 Neutropenia, unspecified; I95.9 Hypotension, unspecified; E11.22 Type 2 diabetes mellitus with diabetic chronic kidney disease; E87.1 Hypo-osmolality and hyponatremia; I12.9 Hypertensive chronic kidney disease with stage 1 through stage 4 chronic kidney disease, or unspecified chronic kidney disease; N18.9 Chronic kidney disease, unspecified; E87.6 Hypokalemia; E83.42 Hypomagnesemia; E78.00 Pure hypercholesterolemia, unspecified; F32.A Depression, unspecified; E86.0 Dehydration; E86.9 Volume depletion, unspecified; E11.65 Type 2 diabetes mellitus with hyperglycemia; E66.01 Morbid (severe) obesity due to excess calories; N39.0 Urinary tract infection, site not specified; Z79.899 Other long term (current) drug therapy; Z68.35 Body mass index [BMI] 35.0-35.9, adult; Z87.442 Personal history of urinary calculi; Z79.84 Long term (current) use of oral hypoglycemic drugs
CPT/HCPCS: 36600; 71045; 74176; 80048; 80053; 80076; 81001; 82784; 82805; 82962; 83690; 83735; 84100; 84132; 84295; 84484; 84702; 85025; 86038; 86256; 86622; 87040; 87045; 87086; 87206; 87324; 87449; 87507; 89055; 93005; 99285; G0378; J0290; J0456; J1644; J1885; J1956; J2270; J2405; J2765; J3475; J3480; J3490; J7030; J7040; J7050; J7060; J7120; 36415-L1; 36415-TC